=== PATIENT | male | born 1935 | race Caucasian/White ===

== ENCOUNTER 2022-04-30 19:52 | Emergency (ER) | payer OTHER ==
[~2022-04-30] VITALS: Ht 170.2 cm; Wt 70.3 kg
[~2022-04-30 19:52] MED LIST: BENA20TA9 PO; CALC-838 PO; CYAN-51 PO; MEMA14CA PO; MIRT-90 PO; MULT-754 PO; OMEG1CAP PO; RIVA1PAT3 TP; TYL2T PO
--- NOTE | 2022-04-30 20:58 | NUR ---
[id number] FROM HOME FOR ABDOMINALPAIN XFEW DAYS WITH URGE TO URINATE BUT UNABLE TO URINATE. PT A/OX2/3. TOLERATING R/A WELL WITH NO SOB. AMB WITH ASSIST. SAFETY MEASURES IN PLACE.
--- NOTE | 2022-04-30 21:02 | NUR ---
SON [phone]
--- NOTE | 2022-04-30 21:45 | NUR ---
FINAL ASSEMBLY INSPECTOR AT PT'S BEDSIDE
[2022-04-30 22:10] LABS: CREATININE 1.1 mg/dL (0.6-1.3); POTASSIUM 3.4 mmol/L (3.5-5.1)
[2022-04-30 22:17] LABS: ALBUMIN 3.5 g/dL (3.4-5.0); BILIRUBIN,DIRECT 0.2 mg/dL (0.0-0.2); BILIRUBIN,TOTAL 0.8 mg/dL (0.2-1.0); TOTAL PROTEIN, SERUM 7.3 g/dL (6.4-8.2)
--- NOTE | 2022-04-30 22:21 | NUR ---
PT RETURNED TO ER BED [address]
--- NOTE | 2022-04-30 22:59 | NUR ---
PT TAKEN TO CT
[2022-04-30 23:02] LABS: BASOPHILS # (AUTO) 0.1 K/uL (0.0-0.2); BASOPHILS % (AUTO) 0.6 % (0.0-2.0); EOSINOPHILS % (AUTO) 2.3 % (0.0-6.0); HEMATOCRIT 41 % (39-51); HEMOGLOBIN 13.7 g/dL (13.5-17.5); LYMPHOCYTES # (AUTO) 1.3 K/uL (0.8-4.8); LYMPHOCYTES % (AUTO) 15.3 % (20.0-44.0); MEAN CORPUSCULAR HGB CONC 34 g/dl (31.0-36.0); MEAN CORPUSCULAR VOLUME 90 fL (80-96); MONOCYTES # (AUTO) 0.9 K/uL (0.1-1.30); MONOCYTES % (AUTO) 10.8 % (2.0-12.0); NEUTROPHILS # (AUTO) 5.9 K/uL (1.8-8.9); PLATELET COUNT (AUTO) 226 K/uL (150-450); RED BLOOD CELL COUNT(AUTO) 4.57 MIL/uL (4.5-6.0); WHITE BLOOD COUNT (AUTO) 8.4 K/uL (4.3-11.0)
--- NOTE | 2022-04-30 23:42 | NUR ---
URINE COLLECTED AND SENT TO LAB
[2022-05-01 00:49] LABS: BILIRUBIN,URINE NEGATIVE (NEGATIVE); COLOR,URINE YELLOW (YELLOW); LEUKOCYTE ESTERASE ,URINE SMALL (NEGATIVE); NITRITE, URINE NEGATIVE (NEGATIVE); PH,URINE 6.5 (5.0-8.0); PROTEIN,URINE NEGATIVE (NEGATIVE); UGLUCOSE NEGATIVE (NEGATIVE)
[2022-05-01 00:55] LABS: BACTERIA,URINE Rare /HPF (None Seen); SQUAMOUS EPITHELIAL CELL,UR Few /HPF (None Seen)
--- NOTE | 2022-05-01 01:54 | NUR ---
PT URINATED VIA F/C 100ML
[2022-05-01] MEDS ORDERED: AMOX-430 PO (03:34)
--- NOTE | 2022-05-01 03:41 | NUR ---
RX Written and verbal after care instructions given. Patient and son Arash verbalizes understanding of instruction. Arash (son) [phone] will last picker pt for DC with ETA of 0600
[2022-05-01] MEDS ORDERED: AMOX/CLAVULANATE 875 MG TABLET PO ONE (04:00)
[2022-05-01] MEDS ORDERED: AMOX/CLAVULANATE 875 MG TABLET ONE (04:01)
--- NOTE | 2022-05-01 06:22 | NUR ---
ADLS DONE; PT HAD MEDIUM CONTINENT AND INCONTINENT URINE VIA PULLUP & URINAL. PT KEPT CLEAN AND DRY. SAFETY MEASURES IN PLACE.
--- NOTE | 2022-05-01 06:28 | NUR ---
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
--- NOTE | 2022-05-01 06:56 | NUR ---
PT PICKED UP BY SON ROSY. AMBULATED OUT OF ER WITH STEADY GAIT WITH RN ASSISTANCE. DISCHARGE INSTRUCTIONS AND PAPERWORK PROVIDED TO PATIENT AND SON.
[2022-05-01 06:57] VITALS: BP 146/87
== END 2022-05-01 06:58 | disposition home or self-care (01) ==
LOC: ER 19:54
DX: R10.30 Lower abdominal pain, unspecified (principal); K57.32 Diverticulitis of large intestine without perforation or abscess without bleeding; Z91.018 Allergy to other foods; Z79.899 Other long term (current) drug therapy
CPT/HCPCS: 36415; 76856-TC; 80048-TC; 80076-TC; 81001; 83690-TC; 85025-TC; 87086-TC